=== PATIENT | male | born 1955 | race Caucasian/White ===

== ENCOUNTER 2017-08-11 11:13 | Emergency (ER) | payer OTHER ==
[~2017-08-11] VITALS: Ht 180.3 cm; Wt 93.1 kg
[2017-08-11 11:26] VITALS: BP 143/78; PULSE 75; RESP 16; TEMP 98.6; O2SAT 98
[2017-08-11] MEDS ORDERED: ATOR20TA15 PO (12:52)
[2017-08-11] MEDS ORDERED: ZOLP10TA3 PO (12:52)
[2017-08-11] MEDS ORDERED: OLME1TAB PO (12:52)
--- NOTE | 2017-08-11 12:58 | PD ---
HPI Chief Complaint: Flank/Kidney Pain Time Seen by Provider: 12:38 Travel History International Travel<30 days: No Contact w/Intl Traveler<30days: No Traveled to known affect area: No History of Present Illness HPI This 61-year-old male has been having some right flank pain off and on for over a year. He had a radical prostatectomy about 2-1/2 years ago and developed the pain after that. Since then the pain has been fairly persistent. It is a right -sided pain that starts in the morning and seemed to get progressively worse. It does not appear affected by deep breathing or by eating. He had had follow- up PSA which was normal. He is not aware of any metastatic disease. PFSH Past Medical History Hx Anticoagulant Therapy: Yes (ASA 81MG DAILY) Cancer: Yes (PROSTATE) High Cholesterol: Yes Hypertension: Yes Past Surgical History Abdominal Surgery: Yes (HERNIA) Other Surgery: Yes (PROSTATECTOMY) Social History Alcohol Use: No Tobacco Use: No Substance Use: No Allergies-Medications (Allergen,Severity, Reaction): Coded Allergies: No Known Allergies (Verified Allergy, Unknown, 08/11/17) Reported Meds & Prescriptions Reported Meds & Active Scripts Active Reported Zolpidem (Zolpidem Tartrate) 10 Mg Tab 10 Mg PO HS PRN Atorvastatin (Atorvastatin Calcium) 20 Mg Tab 20 Mg PO HS Benicar (Olmesartan) 20 Mg Tab 20 Mg PO DAILY Review of Systems General / Constitutional: No: Fever, Chills HENT: No: Headaches Cardiovascular: No: Chest Pain or Discomfort Respiratory: No: Cough Gastrointestinal: No: Vomiting, Diarrhea Genitourinary: Positive: Flank Pain Neurologic: No: Weakness, Dizziness Hematologic/Lymphatic: No: Easy Bruising Physical Exam Narrative GENERAL: Well-developed male SKIN: Focused skin assessment warm/dry. HEAD: Atraumatic. Normocephalic. EYES: Pupils equal and round. No scleral icterus. No injection or drainage. ENT: No nasal bleeding or discharge. Mucous membranes pink and moist. NECK: Trachea midline. No JVD. CARDIOVASCULAR: Regular rate and rhythm. No murmur appreciated. RESPIRATORY: No accessory muscle use. Clear to auscultation. Breath sounds equal bilaterally. GASTROINTESTINAL: Abdomen soft, non-tender, nondistended. Hepatic and splenic margins not palpable. MUSCULOSKELETAL: No obvious deformities. No clubbing. No cyanosis. No edema. NEUROLOGICAL: Awake and alert. No obvious cranial nerve deficits. Motor grossly within normal limits. Normal speech. PSYCHIATRIC: Appropriate mood and affect; insight and judgment normal. Data Data Last Documented VS Vital Signs Date Time Temp Pulse Resp B/P (MAP) Pulse Ox O2 Delivery O2 Flow Rate FiO2 08/11/17 13:10 68 20 159/85 (109) 98 08/11/17 11:26 98.6 Orders Orders Complete Blood Count With Diff (08/11/17 12:55) Comprehensive Metabolic Panel (08/11/17 12:55) Urinalysis - C+S If Indicated (08/11/17 12:55) Ct Abd/Pel W Iv Contrast(Rout) (08/11/17 12:55) Prostate Specific Antigen (08/11/17 12:55) Iohexol 350 Inj (Omnipaque 350 Inj) (08/11/17 14:14) Labs Laboratory Tests Test 08/11/17 13:05 08/11/17 13:50 White Blood Count 5.5 TH/MM3 Red Blood Count 5.27 MIL/MM3 Hemoglobin 15.0 GM/DL Hematocrit 46.5 % Mean Corpuscular Volume 88.3 FL Mean Corpuscular Hemoglobin 28.5 PG Mean Corpuscular Hemoglobin Concent 32.2 % Red Cell Distribution Width 12.8 % Platelet Count 211 TH/MM3 Mean Platelet Volume 8.4 FL Neutrophils (%) (Auto) 49.7 % Lymphocytes (%) (Auto) 38.3 % Monocytes (%) (Auto) 8.7 % Eosinophils (%) (Auto) 2.8 % Basophils (%) (Auto) 0.5 % Neutrophils # (Auto) 2.7 TH/MM3 Lymphocytes # (Auto) 2.1 TH/MM3 Monocytes # (Auto) 0.5 TH/MM3 Eosinophils # (Auto) 0.2 TH/MM3 Basophils # (Auto) 0.0 TH/MM3 CBC Comment DIFF FINAL Differential Comment Urine Collection Type CLEAN CATCH Urine Color YELLOW Urine Turbidity CLEAR Urine pH 5.5 Urine Specific [place] 1.013 Urine Protein NEG mg/dL Urine Glucose (UA) NEG mg/dL Urine Ketones NEG mg/dL Urine Occult Blood NEG Urine Nitrite NEG Urine Bilirubin NEG Urine Leukocyte Esterase NEG Urine RBC 0-3 /hpf Urine Squamous Epithelial Cells 0-5 /hpf Microscopic Urinalysis Comment CULT NOT INDICATED Urine Collection Time 13:05 Blood Urea Nitrogen 16 MG/DL Creatinine 1.00 MG/DL Random Glucose 97 MG/DL Total Protein 8.1 GM/DL Albumin 4.1 GM/DL Calcium Level 9.3 MG/DL Alkaline Phosphatase 77 U/L Aspartate Amino Transf (AST/SGOT) 24 U/L Alanine Aminotransferase (ALT/SGPT) 53 U/L Total Bilirubin 0.7 MG/DL Sodium Level 138 MEQ/L Potassium Level 4.5 MEQ/L Chloride Level 104 MEQ/L Carbon Dioxide Level 26.8 MEQ/L Anion Gap 7 MEQ/L Estimat Glomerular Filtration Rate 75 ML/MIN [facility] Medical Decision Making Medical Screen Exam Complete: Yes Emergency Medical Condition: Yes Medical Record Reviewed: Yes Differential Diagnosis Differential includes radiculopathy, space-occupying lesion, metastatic prostate cancer, renal colic Narrative Course Urinalysis is negative for blood. A CT scan of the abdomen and pelvis was obtained and does not show any space-occupying lesion or etiology for the pain. It is noted that he has some hepatic steatosis and he has been advised. Etiology for the pain has not been determined. A PSA has been ordered and if positive further evaluation for metastasis may be indicated. Diagnosis Primary Impression: Right flank pain Disposition: DISCHARGE HOME Condition: Stable Julio Seymour MD Aug 11, 2017 12:58
[2017-08-11 13:10] VITALS: BP 159/85; PULSE 68; RESP 20; O2SAT 98
[2017-08-11 13:15] LABS: AUTOMATED NEUTROPHIL # 2.7 TH/MM3 (1.8-7.7); BASOPHIL % 0.5 % (0.0-2.0); EOSINOPHIL # 0.2 TH/MM3 (0-0.4); EOSINOPHIL % 2.8 % (0.0-4.0); HEMATOCRIT 46.5 % (39.0-51.0); LYMPH % 38.3 % (9.0-44.0); LYMPHOCYTE # 2.1 TH/MM3 (1.0-4.8); MEAN CELL VOLUME 88.3 FL (80.0-100.0); MEAN CORPUSCULAR HEMOGLOBIN 28.5 PG (27.0-34.0); MEAN CORPUSCULAR HGB CONC 32.2 % (32.0-36.0); MEAN PLATELET VOLUME 8.4 FL (7.0-11.0); MONO % 8.7 % (0.0-8.0); MONOCYTE # 0.5 TH/MM3 (0-0.9); NEUT % 49.7 % (16.0-70.0); PLATELET COUNT 211 TH/MM3 (150-450); RED BLOOD COUNT 5.27 MIL/MM3 (4.50-5.90); RED CELL DISTRIBUTION WIDTH 12.8 % (11.6-17.2); WHITE BLOOD COUNT 5.5 TH/MM3 (4.0-11.0)
[2017-08-11 13:25] LABS: CHLORIDE 104 MEQ/L (98-107); SODIUM (NA) 138 MEQ/L (136-145)
[2017-08-11 13:26] LABS: BILIRUBIN, URINE NEG (NEG); BLOOD, URINE NEG (NEG); GLUCOSE,URINE NEG (NEG); KETONE, URINE NEG (NEG); NITRITE,URINE NEG (NEG); PH, URINE 5.5 (5.0-8.5); URINE LEUKOCYTE ESTERASE NEG (NEG)
[2017-08-11 13:29] LABS: CALCIUM 9.3 MG/DL (8.5-10.1)
[2017-08-11 13:30] LABS: ALBUMIN 4.1 GM/DL (3.4-5.0); BICARBONATE 26.8 MEQ/L (21.0-32.0); BLOOD UREA NITROGEN 16 MG/DL (7-18); GLUCOSE,RANDOM 97 MG/DL (74-106)
[2017-08-11 13:33] LABS: ALT (GPT) 53 U/L (12-78); AST (GOT) 24 U/L (15-37); GLOMERULAR FILTRATION RATE 75 ML/MIN (>89)
[2017-08-11 13:34] LABS: TOTAL BILIRUBIN ADULT 0.7 MG/DL (0.2-1.0); TOTAL PROTEIN 8.1 GM/DL (6.4-8.2)
[2017-08-11 13:36] LABS: ALKALINE PHOSPHATASE 77 U/L (45-117); RBC, URINE 0-3 /hpf (0-3); SQUAMOUS EPITHELIAL CELL URINE 0-5 /hpf (0-5); URINE COLOR YELLOW (YELLW/STRAW)
[2017-08-11] MEDS ORDERED: IOHEXOL 350 MG/ML 10 ML VIAL (for RAD DIAG) IVCONTRAST ONE (14:14)
--- NOTE | 2017-08-11 14:35 | RADRPT ---
EXAM DATE/TIME: 08/11/2017 14:01 [place] COMPARISON: No previous studies available for comparison. INDICATIONS : Right flank pain. History of prostatectomy for prostate cancer. Questionable radiculopathy. IV CONTRAST: 95 cc Omnipaque 350 (iohexol) IV ORAL CONTRAST: No oral contrast ingested. RADIATION DOSE: 16.02 CTDIvol (mGy) MEDICAL HISTORY : Carcinoma, prostate. Hypercholesterolemia. Hypertension.Anticoagulant therapy. SURGICAL HISTORY : Prostatectomy. Hernia surgery. ENCOUNTER: Initial ACUITY: 3 weeks PAIN SCALE: 7/10 LOCATION: Right flank TECHNIQUE: Volumetric scanning of the abdomen and pelvis was performed. Using automated exposure control and ad justment of the mA and/or kV according to patient size, radiation dose was kept as low as reasonably achievable to obtain optimal diagnostic quality images. DICOM format image data is available electro nically for review and comparison. FINDINGS: LOWER LUNGS: The visualized lower lungs are clear. LIVER: Homogeneous density without lesion. There is no dilation of the biliary tree. No calcified gallston es. There is moderate hepatic steatosis. The gallbladder is unremarkable. SPLEEN: Normal size without lesion. PANCREAS: Within normal limits. KIDNEYS: Normal in size and shape. There is no mass or hydronephrosis. There is a single tiny 1 mm nonobstruc ting left renal calculus. ADRENAL GLANDS: Within normal limits. VASCULAR: There is no aortic aneurysm. BOWEL/MESENTERY: The stomach, small bowel, and colon demonstrate no acute abnormality. There is no free intraperitone al air or fluid. ABDOMINAL WALL: Within normal limits. RETROPERITONEUM: There is no lymphadenopathy. BLADDER: No wall thickening or mass. REPRODUCTIVE: Within normal limits. INGUINAL: There is no lymphadenopathy or hernia. MUSCULOSKELETAL: Within normal limits for patient age. CONCLUSION: 1. Single tiny 1 mm nonobstructing left renal calculus. 2. Hepatic steatosis. Bradley Freedman MD on August 11, 2017 at 14:28 Board Certified Radiologist. This report was verified electronically.
[2017-08-11 14:53] VITALS: BP 185/86
[2017-08-18] MEDS ORDERED: TRAM50TA PO (09:04)
== END 2017-08-11 15:01 | disposition home or self-care (01) ==
LOC: PHED 11:13
DX: R10.9 Unspecified abdominal pain (principal); K76.0 Fatty (change of) liver, not elsewhere classified; I10 Essential (primary) hypertension; E78.00 Pure hypercholesterolemia, unspecified; Z79.82 Long term (current) use of aspirin; Z85.46 Personal history of malignant neoplasm of prostate
CPT/HCPCS: 74177; 80053; 81001; 84153; 85025; 99285; Q9967